=== PATIENT | male | born 1945 | race Caucasian/White ===

== ENCOUNTER 2017-05-23 14:55 | Emergency (ER) | payer OTHER ==
[~2017-05-23] VITALS: Ht 172.7 cm; Wt 81.6 kg
[2017-05-23 14:56] VITALS: Ht 172.7 cm; Wt 81.6 kg
[2017-05-23 15:50] LABS: CALCIUM 9.2 mg/dL (8.5-10.1); CARBON DIOXIDE 29.3 mmol/L (21-32); CHLORIDE SERUM 107 mmol/L (98-107); CREATININE SERUM 1.1 mg/dL (0.7-1.3); GLUCOSE SERUM 90 mg/dL (74-106); POTASSIUM SERUM 3.9 mmol/L (3.5-5.1); SODIUM SERUM 141 mmol/L (136-145)
[2017-05-23 15:54] LABS: ALBUMIN 3.6 g/dL (3.4-5.0); ALKALINE PHOSPHATASE 94 U/L (46-116); ALT/SGPT 24 U/L (16-63); AST/SGOT 26 U/L (15-37); BILIRUBIN TOTAL 0.43 mg/dL (0.20-1.00); TOTAL PROTEIN, SERUM 7.5 g/dL (6.4-8.2)
[2017-05-23 15:55] LABS: BASOPHIL % 0.3 % (0-2); PLATELET COUNT 155 x10^3mcL (130-400); RED CELL DISTRIBUTION WIDTH 13.5 % (11.5-14.5)
[2017-05-23 17:09] VITALS: BP 168/87
== END 2017-05-23 22:02 | disposition home or self-care (01) ==
LOC: ED 14:55
DX: R07.89 Other chest pain (principal); I10 Essential (primary) hypertension; J45.909 Unspecified asthma, uncomplicated; E78.5 Hyperlipidemia, unspecified; Z95.1 Presence of aortocoronary bypass graft
CPT/HCPCS: 83880; J1885; Q0092

== ENCOUNTER 2019-02-23 21:16 | Inpatient (IN) | payer OTHER ==
[~2019-02-23] VITALS: Ht 171.4 cm; Wt 80.4 kg
--- NOTE | 2019-02-23 21:31 | NUR ---
PT PRESENTS TO ED FROM [facility] WITH [facility] FOR C/O CHEST PAIN THAT BEGAN AROUND 5PM. PER PT CHEST PAIN STARTED AT 5PM WHEN HE WAS WALKING TO DINNER. PT STATES THE PAIN FELT LIKE A STABBING PAIN. PT STATES THAT HE PROCEDED TO EAT DINNER AND THEN WENT BACK TO HIS CELL WHEN HIS CELL MATE STATES THAT HE DIDNT LOOK GOOD AND SOUGHT HELP. PT STATES THE PAIN WAS IN THE CENTER OF HIS CHEST THAT WAS NON RADIATING. PT STATES AT THE TIME HE ALSO FELT SOB. PT STATES HE WAS GIVEN 3 NITRO AND ASPIRIN AT THE FACILITY AND DENIES CHEST PAIN AT THIS TIME. PT ALSO DENIES SOB. PT HAS EXTENSIVE CARDIAC HX. PT AXO X4. PT SPEAKING IN CLEAR AND FULL SENTENCES. RESP E/U. PT CONNECTED TO FULL CM AND PULSE OX MONITORS. MD CAMEJO AT BEDSIDE FOR MSE. OFFICERS AT BEDSIDE
[2019-02-23 22:01] LABS: PLATELET COUNT 162 x10^3mcL (130-400); RED CELL DISTRIBUTION WIDTH 13.9 % (11.5-14.5)
[2019-02-23 22:03] LABS: CALCIUM 8.8 mg/dL (8.5-10.1); CARBON DIOXIDE 30.1 mmol/L (21-32); CHLORIDE SERUM 106 mmol/L (98-107); CREATININE SERUM 1.2 mg/dL (0.7-1.3); GLUCOSE SERUM 94 mg/dL (74-106); POTASSIUM SERUM 4.5 mmol/L (3.5-5.1); SODIUM SERUM 143 mmol/L (136-145)
[2019-02-23 22:08] LABS: ALBUMIN 3.4 g/dL (3.4-5.0); ALKALINE PHOSPHATASE 72 U/L (46-116); ALT/SGPT 22 U/L (16-63); AST/SGOT 32 U/L (15-37); BILIRUBIN TOTAL 0.5 mg/dL (0.20-1.00); TOTAL PROTEIN, SERUM 7.1 g/dL (6.4-8.2)
[2019-02-23 22:39] LABS: MONOCYTE 11 % (0-7); SEGMENTED NEUTROPHILS 47 % (37-75)
[2019-02-23 22:40] LABS: PLATELET MORPHOLOGY PLATELETS NORMAL; rbc morphology (normal/abnorm) NORMAL (NORMAL)
[2019-02-23] MEDS ORDERED: HYDRALAZINE HCL25 MG PO (23:11)
[2019-02-23] MEDS ORDERED: GOOD SENSE ASPI81 M3 PO (23:11)
[2019-02-23] MEDS ORDERED: CAPSAICIN HOT1 EACH (23:12)
[2019-02-23] MEDS ORDERED: LIPITOR20 MG PO (23:12)
[2019-02-23] MEDS ORDERED: MOMETASONE FUROA0.11 (23:12)
[2019-02-23] MEDS ORDERED: HYDROCHLOROTHIA25 MG PO (23:13)
[2019-02-23] MEDS ORDERED: FUROSEMIDE20 MG PO (23:13)
[2019-02-23] MEDS ORDERED: NAPROXEN375 MG PO (23:13)
[2019-02-23] MEDS ORDERED: METOPROLOL5 MG/5 ML PO (23:14)
[2019-02-23] MEDS ORDERED: XOPENEX HF0.045 MG/1 IH (23:14)
[2019-02-23] MEDS ORDERED: KEN025C TOP (23:14)
--- NOTE | 2019-02-23 23:23 | NUR ---
PT WAS RECEIVED BY PRIMARY NURSE JAYCE FROM ED [facility]IA [facility], CAME IN DUE TO CHEST PAIN. AAOX4. DENIES HEADACHE/DIZZINESS. ABLE TO FOLLOW COMMANDS. NO SOB NOTED, LUNG SOUNDS CTA. DENIES CHEST PAIN/PRESSURE, SINUS BRADYCARDIA ON THE MONITOR. DENIES ABDOMINAL DISCOMFORT. BOWEL SOUNDS ACTIVE. VOIDS. IV SITE ON THE LAC IS PATENT AND INTACT. SIDE RAILS UPX2. CALL LIGHT ON REACH. ENDORSED TO PRIMARY NURSE JAYCE FOR CONTINUITY OF CARE
[2019-02-23 23:24] LABS: MAGNESIUM 2.3 mg/dL (1.8-2.4)
[2019-02-23 23:25] LABS: CHOLESTEROL/HDL RATIO 2.9
--- NOTE | 2019-02-23 23:28 | NUR ---
REPORT CALLED TO JAYCE SHINE PT DENIES CHEST PAIN AT THIS TIME OR ANY OTHER COMPLAINTS
[2019-02-23 23:52] LABS: AMPHETAMINE QUAL UR NONE DETECTED (See below)
[2019-02-24] VITALS (8 sets, daily range): BP systolic 121–171; BP diastolic 69–85; Ht 171.4 cm; Wt 80.4 kg
[2019-02-24 06:13] LABS: microscopic required? NO
--- NOTE | 2019-02-24 06:23 | NUR ---
PT AWAKE AND RESTING IN BED, SLEPT ON AND OFF WHOLE NIGHT AFTER ADMITTED TO THE UNIT, SL TO LAC, NO COMPLAINED OF CHEST PAIN OR CHEST DISCOMFORT SINCE ADMITTED, BREATHING EVEN AND UNLABORED ON ROOM AIR WITH NO RESP DISTRESS NOTED, GUARDS AT BEDSIDE, NO DISTRESS NOTED, WILL KEEP TO MONITOR.
--- NOTE | 2019-02-24 07:30 | NUR ---
REPORT GIVEN TO MICHAELA-RN, ALL QUESTIONS ANSWERED AND CONCERNS ADDRESSED.
--- NOTE | 2019-02-24 07:31 | NUR ---
RECEIVED A BEDSIDE REPORT. SEEN IN BED HAVING BREAKFAST. BREATHING NOTED ON ROOM AIR, NO SOB. DENIES CHEST PAIN OR CHEST PRESSURE. S/L TO LAC INTACT AND PATENT. CORRECTIONAL GUARDS AT BEDSIDE. CALL LIGHT PLACED WITHIN EASY REACH. SIDERAILS UP X2.
[2019-02-24 07:40] LABS: CALCIUM 8.6 mg/dL (8.5-10.1); CARBON DIOXIDE 26.9 mmol/L (21-32); CHLORIDE SERUM 107 mmol/L (98-107); CREATININE SERUM 0.9 mg/dL (0.7-1.3); GLUCOSE SERUM 82 mg/dL (74-106); POTASSIUM SERUM 3.9 mmol/L (3.5-5.1); SODIUM SERUM 144 mmol/L (136-145)
--- NOTE | 2019-02-24 08:26 | NUR ---
RECEIVED A CALL FROM DOCTOR LARSON, CONDITION UPDATED. RECIEVED T.O. ORDERS FOR LEXISCAN FOR TOMORROW AT 11:00AM. PATIENT MADE AWARE.
--- NOTE | 2019-02-24 09:51 | NUR ---
SEEN BY DOCTOR
[2019-02-24 10:27] LABS: UA SPECIFIC GRAVITY <=1.005 (1.005-1.035); urine erythrocyte NEGATIVE (NEGATIVE)
--- NOTE | 2019-02-24 14:02 | NUR ---
ENDORSED TO SUSAN ARELLANO FOR CONTINUATION OF CARE.
--- NOTE | 2019-02-24 14:06 | NUR ---
RECEIVED PATIENT FROM MICHAELA SHINE AT THIS TIME. PATIENT IS SITTING UP IN BED WATCHING TV. GUARDS AT BEDSIDE. PATIENT DENIES ANY PAIN OR DISCOMFORT AT THIS TIME. HL LEFT A/C PATENT. NO ACUTE DISTRESS NOTED. WILL CONTINUE TO MONITOR.
--- NOTE | 2019-02-24 15:30 | NUR ---
PATIENT REMAINS IN BED WITH GUARDS AT BEDSIDE. ECHO CARDIOGRAM IN PROGRESS. PATIENT CONTINUES TO DENY AND CHEST PAIN OR DISCOMFORT.
--- NOTE | 2019-02-24 18:04 | NUR ---
PATIENT SITTING UP IN BED EATING DINNER TRAY. DENIES ANY CHEST PAIN . GUARDS AT BEDSIDE. PATIENT TO BE NPO AFTER MIDNOC AND IS AWARE.
--- NOTE | 2019-02-24 19:50 | NUR ---
PT SEEN, RESTING IN BED, ALERT AND ORIENTED X 4 AND VERY VERBALLY RESPONSIVE, DENIES HEADACHE OR DIZZINESS, BREATHING EVEN AND UNLABORED, LUNG SOUNDS CLEAR ON ROOM AIR WITH NO RESP DISTRESS NOTED, ON TELE#6 NSR/SB, DENIES CHEST PAIN, SL TO LAC, PULSES PALPABLE, NO EDEMA NOTED, AMBULATORY WITH STEADY GAIT, ABD SOFT AND FLAT WITH ACTIVE BS, NO BM AT THIS TIME, VOIDING FREELY WITH URINAL, GUARDS AT BEDSIDE, NPO AFTER MN FOR STRESS TEST IN AM, NO DISTRESS NOTED, WILL KEEP TO MONITOR.
[2019-02-25 05:55] VITALS: BP 148/79
--- NOTE | 2019-02-25 06:18 | NUR ---
PT AWAKE AND RESTING IN BED, SLEPT MOST OF NIGHT, BREATHING EVEN AND UNLABORED ON ROOM AIR, NO C/O OF CHEST PAIN OR CHEST DISCOMFORT SINCE BEGINNING OF SHIFT, SL TO LAC, NPO AFTER MN, GUARDS AT BEDSIDE, NO DISTRESS NOTED, WILL KEEP TO MONITOR.
--- NOTE | 2019-02-25 07:00 | NUR ---
RECEIVED BEDSIDE REPORT FROM CONTRACT ADMINISTRATOR NURSE AT THIS TIME. PATIENT RESTING COMFORTABLY IN BED. NO APPARENT DISTRESS OR DISCOMFORT NOTED. BREATHING EVEN AND UNLABORED. NO RESPIRATORY DISTRESS OR DISCOMFORT NOTED. PATIENT DENIES CHEST PAIN/PRESSURE AT THIS TIME. IV PATENT AND INTACT. PATIENT IS SCHEDULED FOR A STRESS TEST AT 1100 AND IS NPO. ALL QUESTIONS AND CONCERNS ADDRESSED. ALL NEEDS ATTENDED TO. WILL CONTINUE TO MONITOR
--- NOTE | 2019-02-25 07:18 | NUR ---
BEDSIDE HANDOFF REPORT GIVEN TO GARLAND, ALL QUESTIONS ANSWERED AND CONCERNS ADDRESSED.
[2019-02-25 09:00] VITALS: BP 156/79
--- NOTE | 2019-02-25 09:28 | NUR ---
SPOKE TO DR BISHOP REGARDING PATIENT MEDICATION KENALOG CREAM. PER DR BISHOP, MEDICATION IS FOR ITCHINESS. REPORTED TO DR BISHOP PATIENT DID NOT C/O ITCHING AT THIS TIME AND MEDICATION WAS HELD, OK WITH DR BISHOP. ALL NEEDS ATTENDED TO. WILL CONTINUE TO MONITOR
--- NOTE | 2019-02-25 10:00 | NUR ---
PATIENT DOWN FOR LEXISCAN AT THIS TIME. ALL NEEDS ATTENDED TO. WILL CONTINUE TO MONITOR
--- NOTE | 2019-02-25 12:05 | NUR ---
PATIENT BACK FROM [facility] AT THIS TIME. ALL NEEDS ATTENDED TO. WILL CONTINUE TO MONITOR
--- NOTE | 2019-02-25 12:27 | NUR ---
SPOKE TO DR LARSON AT THIS TIME REGARDING PATIENT DIET ORDER. PER DR LARSON OK TO INPUT TELEPHONE ORDER TO CHANGE DIET FROM NPO TO CARDIAC DIET FOR LUNCH. TELEPHONE ORDER READ BACK, CONFIRMED AND FOLLOWED THROUGH. ALL NEEDS ATTENDED TO. WILL CONTINUE TO MONITOR
[2019-02-25 12:50] VITALS: BP 145/61
--- NOTE | 2019-02-25 13:47 | NUR ---
REPORTED TO DR BISHOP RESULTS OF PATIENTS STRESS TEST AT THIS TIME. WILL PROCEED ORDERED. WILL CONTINUE TO MONITOR
[2019-02-25 15:30] VITALS: BP 145/61
--- NOTE | 2019-02-25 16:51 | NUR ---
PATIENT STABLE TO BE DISCHARGED AND TRANSFERRED BACK TO [facility]. DISCHARGE INSTRUCTIONS GIVEN WELL EDUCATION. PATIENT VERBALIZES UNDERSTANDING. IV REMOVED WITH CATH INTACT. ID BANDS REMOVED. TELE MONITOR REMOVED AND RETURNED TO INDUSTRIAL MECHANIC. ALL QUESTIONS AND CONCERNS ADDRESSED. ALL NEEDS ATTENDED TO. AWAITING TRANSPORTATION AT THIS TIME. GUARDS AT BEDSIDE TO PROMOTE PATIENT SAFETY.
--- NOTE | 2019-02-25 18:32 | NUR ---
PATIENT RESTING COMFORTABLY IN BED AT THIS TIME. NO APPARENT DISTRESS OR DISCOMFORT NOTED. IV PATENT AND INTACT. ALL QUESTIONS AND CONCERNS ADDRESSED. ALL NEEDS ATTENDED TO. SAFETY PRECAUTIONS MAINTAINED. GUARDS AT BEDSIDE. AWAITING TRANSPORTATION AT THIS TIME. WILL ENDORSE ALL CARE TO AERIAL PHOTOGRAPH INTERPRETER NURSE
== END 2019-02-25 19:40 | disposition other institution (70) | DRG 303 ==
LOC: ED 21:16 → DU 22:53
PROVIDERS: Emergency Medicine; ADMIT Internal Medicine
DX: I25.119 Atherosclerotic heart disease of native coronary artery with unspecified angina pectoris (principal); K21.9 Gastro-esophageal reflux disease without esophagitis; E78.5 Hyperlipidemia, unspecified; J45.909 Unspecified asthma, uncomplicated; G89.29 Other chronic pain; M54.5 Low back pain; Z68.28 Body mass index [BMI] 28.0-28.9, adult; Z95.1 Presence of aortocoronary bypass graft; I10 Essential (primary) hypertension; R09.1 Pleurisy
CPT/HCPCS: A9500; G0378; J2785; J7030; Q0092

== ENCOUNTER 2019-04-18 19:36 | Inpatient (IN) | payer OTHER ==
[~2019-04-18] VITALS: Ht 170.2 cm; Wt 82.3 kg
[~2019-04-18 19:36] MED LIST: CAPSAICIN HOT1 EACH; FUROSEMIDE20 MG PO; GOOD SENSE ASPI81 M3 PO; HYDRALAZINE HCL25 MG PO; HYDROCHLOROTHIA25 MG PO; KEN025C TOP; LIPITOR20 MG PO; METOPROLOL5 MG/5 ML PO; MOMETASONE FUROA0.11 INH; NAPROXEN375 MG PO; XOPENEX HF0.045 MG/1 IH
[2019-04-18 19:43] VITALS: Ht 170.2 cm; Wt 82.3 kg
[2019-04-18 20:20] LABS: BASOPHIL % 0.4 % (0-2); PLATELET COUNT 133 x10^3mcL (130-400); RED CELL DISTRIBUTION WIDTH 12.9 % (11.5-14.5)
[2019-04-18 21:12] LABS: microscopic required? NO
[2019-04-18 21:30] LABS: urine erythrocyte NEGATIVE (NEGATIVE)
[2019-04-18 23:28] LABS: AMPHETAMINE QUAL UR NONE DETECTED (See below)
[2019-04-18 23:36] LABS: ALBUMIN 3.7 g/dL (3.4-5.0); ALKALINE PHOSPHATASE 67 U/L (46-116); ALT/SGPT 23 U/L (16-63); AST/SGOT 22 U/L (15-37); BILIRUBIN TOTAL 0.46 mg/dL (0.20-1.00); CALCIUM 9.2 mg/dL (8.5-10.1); CARBON DIOXIDE 23.1 mmol/L (21-32); CHLORIDE SERUM 106 mmol/L (98-107); CHOLESTEROL 101 mg/dL (<200); CREATININE SERUM 1.3 mg/dL (0.7-1.3); GLUCOSE SERUM 88 mg/dL (74-106); HDL CHOLESTEROL 38 mg/dL (40-60); LIPASE 153 IU/L (73-393); SODIUM SERUM 141 mmol/L (136-145); T4(THYROXINE) 8.6 ug/dL (4.7-13.3); TOTAL PROTEIN, SERUM 7.3 g/dL (6.4-8.2)
[2019-04-19] MEDS ORDERED: LIDOCAINE HCL100 ML PO (00:10)
[2019-04-19 01:52] LABS: MAGNESIUM 2.3 mg/dL (1.8-2.4)
[2019-04-19 01:53] LABS: CHOLESTEROL/HDL RATIO 2.7
[2019-04-19 04:36] VITALS: BP 146/67
[2019-04-19 05:08] VITALS: BP 145/86
[2019-04-19 08:56] VITALS: BP 143/75
[2019-04-19 12:02] VITALS: BP 120/68
[2019-04-19 16:08] VITALS: BP 109/49
[2019-04-19 20:30] VITALS: BP 114/58
[2019-04-20 04:46] VITALS: BP 100/56
[2019-04-20 06:37] LABS: BASOPHIL % 0.5 % (0-2); RED CELL DISTRIBUTION WIDTH 12.8 % (11.5-14.5)
[2019-04-20 06:42] LABS: PLATELET COUNT 125 x10^3mcL (130-400)
[2019-04-20 06:45] LABS: CALCIUM 8.9 mg/dL (8.5-10.1); CARBON DIOXIDE 27.2 mmol/L (21-32); CHLORIDE SERUM 105 mmol/L (98-107); CREATININE SERUM 1.3 mg/dL (0.7-1.3); GLUCOSE SERUM 104 mg/dL (74-106); POTASSIUM SERUM 3.7 mmol/L (3.5-5.1); SODIUM SERUM 141 mmol/L (136-145)
[2019-04-20 08:52] VITALS: BP 120/56
[2019-04-20 13:05] VITALS: BP 124/71
[2019-04-20 15:11] VITALS: BP 124/71
[2019-04-20 16:54] VITALS: BP 123/56
== END 2019-04-20 17:44 | disposition other institution (70) | DRG 311 ==
LOC: ED 19:36 → DU 23:53
PROVIDERS: Emergency Medicine; ADMIT Internal Medicine
DX: I24.9 Acute ischemic heart disease, unspecified (principal); J44.9 Chronic obstructive pulmonary disease, unspecified; K21.9 Gastro-esophageal reflux disease without esophagitis; G89.29 Other chronic pain; M54.5 Low back pain; E78.5 Hyperlipidemia, unspecified; Z95.1 Presence of aortocoronary bypass graft; Z79.82 Long term (current) use of aspirin; I25.10 Atherosclerotic heart disease of native coronary artery without angina pectoris; I12.9 Hypertensive chronic kidney disease with stage 1 through stage 4 chronic kidney disease, or unspecified chronic kidney disease; N18.9 Chronic kidney disease, unspecified
CPT/HCPCS: 83880; G0378; Q0092